=== PATIENT | male | born 1985 | race Caucasian/White ===

== ENCOUNTER 2024-07-19 12:23 | Emergency (ER) | payer OTHER ==
[~2024-07-19] VITALS: Ht 175.3 cm; Wt 72.3 kg
[2024-07-19 12:38] VITALS: BP 166/105; TEMP 98.8
[2024-07-19 14:05] VITALS: O2SAT 98
== END 2024-07-19 14:07 | disposition home or self-care (01) ==
LOC: ER 12:30
DX: S86.912A Strain of unspecified muscle(s) and tendon(s) at lower leg level, left leg, initial encounter (principal); F17.200 Nicotine dependence, unspecified, uncomplicated; I10 Essential (primary) hypertension; Y93.02 Activity, running; Z60.2 Problems related to living alone; X50.9XXA Other and unspecified overexertion or strenuous movements or postures, initial encounter; Y93.89 Activity, other specified; Y92.89 Other specified places as the place of occurrence of the external cause; Y99.8 Other external cause status
CPT/HCPCS: 73552; 73562

== ENCOUNTER 2024-08-26 14:01 | Emergency (ER) | payer OTHER ==
[~2024-08-26] VITALS: Ht 177.8 cm; Wt 77.1 kg
[2024-08-26 14:19] VITALS: BP 187/131; O2SAT 98
== END 2024-08-26 15:44 | disposition left against medical advice (07) ==
LOC: ER 14:18
DX: G47.00 Insomnia, unspecified (principal); Z53.21 Procedure and treatment not carried out due to patient leaving prior to being seen by health care provider